=== PATIENT | female | born 1955 | race Caucasian/White ===

== ENCOUNTER → 2017-09-17 | Outpatient (CLI) | payer BC | LOC: FIMAGING 07:35 | PROVIDERS: ATTEND Orthopaedic Surgery | DX: Z01.818 Encounter for other preprocedural examination (principal); M17.11 Unilateral primary osteoarthritis, right knee ==

== ENCOUNTER 2017-09-24 06:01 | Observation (INO) | payer BC ==
[~2017-09-24 06:01] MED LIST: LIDOCAINE 1% 2 ML INJ ID PRN; LR 1,000 ML IV ONE; ROPIVACAINE 0.2% 80 MG, EPINEPHrine 0.2 MG, KETOROLAC TROMETHAMINE 30 MG in SYRINGE 0 ML IU ONE; TRANEXAMIC ACID 3,000 MG in NS (SYRINGE) 50 ML IRR ONE
[2017-09-24] MEDS ORDERED: ACETAMINOPHEN 325 MG TAB PO ONE (06:16)
[2017-09-24] MEDS ORDERED: FAMOTIDINE 20 MG TAB PO ONE (06:16)
[2017-09-24] MEDS ORDERED: DEXAMETHASONE 4 MG/ML VIAL IVP ONE (06:16)
[2017-09-24] MEDS ORDERED: ceFAZolin 2 GM/SWFI 2 GM/20 ML SYR IVP ONE (06:16)
[2017-09-24] MEDS ORDERED: TRANEXAMIC ACID 3,000 MG/50 ML BAG IRR ONE (06:35)
[2017-09-24] MEDS ORDERED: VANCOMYCIN 1 GM VIAL ONE (06:35)
[2017-09-24] MEDS ORDERED: MIDAZOLAM 2 MG/2 ML VIAL ONE (07:01)
--- NOTE | 2017-09-24 07:08 | PDHPUP ---
History & Physical Update H&P update statement: This history and physical update is based on an assessment of the patient which was completed after admission or registration (within 24 hours), but prior to the surgery/procedure. H&P update: H&P reviewed & patient examined, no change in patient's condition since H&P completed
[2017-09-24] MEDS ORDERED: PROPOFOL/EMULSION 500 MG/50 ML BOTTLE IV ONE (07:09)
[2017-09-24] MEDS ORDERED: DIPHENOXYLATE/ATROPINE LOMOTIL 1 TAB PO PRN (07:23)
[2017-09-24] MEDS ORDERED: ONDANSETRON 4 MG/2 ML VIAL IVP PRN ×2 (07:23→07:28)
[2017-09-24] MEDS ORDERED: TEMAZEPAM 15 MG CAP PO PRN (07:23)
[2017-09-24] MEDS ORDERED: diphenhydrAMINE 25 MG CAP PO PRN (07:23)
[2017-09-24] MEDS ORDERED: oxyCODONE IR 5 MG TAB PO PRN (07:23)
[2017-09-24] MEDS ORDERED: POLYETHYLENE GLYCOL 3350 17 GM PKT PO PRN (07:23)
[2017-09-24] MEDS ORDERED: PROMETHAZINE HCL 25 MG/ML INJ IVP PRN (07:23)
[2017-09-24] MEDS ORDERED: LACTULOSE 20 GM/30 ML UDCUP PO PRN (07:23)
[2017-09-24] MEDS ORDERED: BISACODYL 10 MG SUPP PR PRN (07:23)
[2017-09-24] MEDS ORDERED: PROMETHAZINE HCL 25 MG SUPPR PR PRN (07:23)
[2017-09-24] MEDS ORDERED: CYCLOBENZAPRINE 10 MG TAB PO PRN (07:23)
[2017-09-24] MEDS ORDERED: NON-FORMULARY NEW DRUG (Omeprazole [Prilosec 20 Mg] 20 MG) PO PRN (07:23)
[2017-09-24] MEDS ORDERED: ONDANSETRON DISINTEGRATING 4 MG TAB PO PRN (07:23)
[2017-09-24] MEDS ORDERED: METOCLOPRAMIDE 10 MG/2 ML VIAL IVP PRN (07:23)
[2017-09-24] MEDS ORDERED: MAGNESIUM HYDROXIDE 30 ML UDCUP PO PRN (07:23)
--- NOTE | 2017-09-24 07:26 | PDANEPAE ---
ANE Past Medical History - Cardiovascular History Hx Hypertension: Yes Hx Arrhythmias: No Hx Chest Pain: No Hx Coronary Artery / Peripheral Vascular Disease: No Hx CHF / Valvular Disease: No Hx Palpitations: No - Pulmonary History Hx COPD: No Hx Asthma/Reactive Airway Disease: No Hx Recent Upper Respiratory Infection: No Hx Oxygen in Use at Home: No Hx Sleep Apnea: No Sleep Apnea Screening Result - Last Documented: Positive - Neurologic History Hx Cerebrovascular Accident: No Hx Seizures: No Hx Dementia: No - Endocrine History Hx Diabetes: No - Renal History Hx Renal Disorders: No - Liver History Hx Hepatic Disorders: No - Neurological & Psychiatric Hx Hx Neurological and Psychiatric Disorders: No - Cancer History Hx Cancer: No - Congenital Disorder History Hx Congenital Disorders: No - GI History Hx Gastrointestinal Disorders: Yes Gastrointestinal History Comment: GERD - Other Health History Other Health History: NEG - Chronic Pain History Chronic Pain: Yes (R KNEE) - Surgical History Prior Surgeries: L TKA. LAP BAND. C SECTION ANE Review of Systems Review of Systems: - Exercise capacity METS (RN): 4 METS ANE Patient History - Allergies Allergies/Adverse Reactions: No Known Allergies Allergy (Unverified 08/15/17 13:26) - Home Medications Home Medications: Calcium Carbonate [Oyster Shell Calcium 500 mg (*)] 500 mg PO DAILY 08/15/17 [ Last Taken 2 Weeks Ago ~09/10/17] Cholecalciferol Vit D3 [Vitamin D3 2000 units tab (OTC)] 10,000 units PO BID [Last Taken 2 Weeks Ago ~09/10/17] Herbals/Supplements -Info Only 1 ea PO DAILY 08/15/17 [Last Taken 2 Weeks Ago ~ 09/10/17] Losartan/Hydrochlorothiazide [Losartan-Hctz 100-25 Mg Tab] 1 each PO DAILY 08/15 [Last Taken 1 Day Ago ~09/23/17] Naproxen Sodium [Aleve 220 MG (*)] 220 mg PO BID PRN 08/15/17 [Last Taken 1 Week Ago ~09/17/17] Omeprazole [Prilosec 20 mg] 20 mg PO DAILY PRN 08/15/17 [Last Taken 09/19/17] - NPO status NPO Since - Liquids (Date): 09/24/17 NPO Since - Liquids (Time): 06:45 NPO Since - Solids (Date): 09/23/17 NPO Since - Solids (Time): 18:00 - Smoking Hx Smoking Status: Never smoked - Family Anes Hx Family Hx Anesthesia Complications: NEG ANE Labs/Vital Signs - Vital Signs Blood Pressure: 124/74 Heart Rate: 77 Respiratory Rate: 18 O2 Sat (%): 95 Height: 170.18 cm Weight: 72.121 kg ANE Physical Exam - Airway Neck exam: FROM Mallampati Score: Class 1 Mouth exam: normal dental/mouth exam - Pulmonary Pulmonary: no respiratory distress, no rales or rhonchi, clear to auscultation - Cardiovascular Cardiovascular: no murmur, rub, or gallop - ASA Status ASA Status: II ANE Anesthesia Plan Anesthesia Plan: spinal
[2017-09-24] MEDS ORDERED: MEPERIDINE 25 MG/ML SYR IVP PRN (07:28)
[2017-09-24] MEDS ORDERED: NALOXONE HCL 0.4 MG/ML INJ IVP PRN (07:28)
[2017-09-24] MEDS ORDERED: fentaNYL 100 MCG/2 ML INJ IVP PRN (07:28)
[2017-09-24] MEDS ORDERED: DEXAMETHASONE 4 MG/ML VIAL IVP PRN (07:28)
[2017-09-24] MEDS ORDERED: LIDOCAINE 2% 5 ML SDV ONE (07:29)
[2017-09-24] MEDS ORDERED: LR 1,000 ML IV SCH (07:30)
[2017-09-24] MEDS ORDERED: ROPIVACAINE HCL 150 MG/30 ML INJ ONE (07:49)
--- NOTE | 2017-09-24 08:40 | POSTOPPROG ---
Post Op Note Date of Operation: 09/24/17 Surgeon: Hernán Verdugo Soldering Machine Operator: masood verdugo Anesthesiologist: Dr. Gutiérrez Anesthesia: Spinal, Other (Specify) (adductor canal block) Pre-op Diagnosis: right knee OA Post-op Diagnosis: same Indication: right knee pain due to OA that failed conservative measures Procedure: R TKA robot assisted Findings: severe knee OA Inf/Abcess present in the surg proc area at time of surgery?: No EBL: 50-100
--- NOTE | 2017-09-24 08:58 | POSTANESTH ---
Post Anesthetic Evaluation Cardiovascular Status: Normal, Stable Respiratory Status: Normal, Stable Level of Consciousness/Mental Status: Can Participate in Eval Pain Control: Adequate, Prn Tx Ordered Nausea/Vomiting Control: Adequate, Prn Tx Ordered Complications Possibly Related to Anesthesia: None Noted
[2017-09-24] MEDS: ASPIRIN 81 MG CHEWABLE TAB PO SCH ×2 (09:53→21:42)
[2017-09-24] MEDS: SENNOSIDES/DOCUSATE SODIUM TAB PO SCH ×2 (09:54→21:43)
[2017-09-24] MEDS ORDERED: PANTOPRAZOLE SODIUM 40 MG TAB PO PRN (10:07)
[2017-09-24] MEDS: ACETAMINOPHEN 325 MG TAB PO SCH ×3 (12:18→23:42)
[2017-09-24] MEDS ORDERED: ceFAZolin 2 GM/DEXTROSE 100 ML IV SCH (14:00)
[2017-09-24] MEDS: ceFAZolin 2 GM/SWFI 2 GM/20 ML SYR IVP SCH ×2 (14:23→23:43)
[2017-09-24] MEDS: FAMOTIDINE 20 MG TAB PO SCH (21:42)
[2017-09-24 23:38] VITALS: RESP 16
[2017-09-25] MEDS: ACETAMINOPHEN 325 MG TAB PO SCH ×2 (05:26→10:49)
--- NOTE | 2017-09-25 06:42 | GOP ---
[f rep st] OPERATIVE REPORT DATE OF OPERATION: 09/24/2017 SURGEON: Suly Walters MD EVIDENCE SPECIALIST: SKYLAR Nunez ANESTHESIA: Spinal. PREOPERATIVE DIAGNOSIS: Right knee osteoarthritis. POSTOPERATIVE DIAGNOSIS: Right knee osteoarthritis. PROCEDURE PERFORMED: Right total knee arthroplasty with computer navigation, robotic assist. FINDINGS: severe medial and PF DJD. ESTIMATED BLOOD LOSS: 30 cc. INDICATIONS: The patient is a 62-year-old female, with severe and progressive pain and deformity of the right knee unresponsive to conservative care. The risks and benefits of surgical intervention were explained in detail. DESCRIPTION OF PROCEDURE: The patient was brought to the operative room and placed on the table in the supine position. Spinal anesthesia was induced without difficulty. A pneumatic tourniquet was applied about the right proximal thigh, and the leg was prepped and draped in a sterile fashion. The leg sinha was applied. After exsanguination by elevation the tourniquet was inflated to 250 mmHg. Incision was made anterior medial from the tibial tuberosity to a point 2cm proximal to the superior pole of the patella. Medial parapatellar arthrotomy was carried out from the superior pole of the patella and posteriorly in line with the fibers of the Type II VMO. The medial collateral ligament was elevated and the infrapatellar fat pad was resected. The patella was everted and the articular surface was excised. A 35 mm patellar button was placed. Attention was turned first to the distal aspect of the femur. After exposure of the femur, 2 half pins were placed for fixation of the femoral array. In a similar fashion, 2 pins were placed anteromedial on the tibia for fixation of the tibial array. External land marking and registration of the hip center was performed without difficulty. Internal femoral and tibial registration was carried out without difficulty and the femoral and tibial checkpoints were placed and verified for accuracy. Attention was turned to the femur. The foot print for the size 4 femoral component was cut with the saw using the Flyfit robotic system and verified for accuracy against the CT based plan. In a similar fashion, the saw was used to cut the footprint for the size 4 tibial component using the Flyfit system and verified for accuracy against the CT based plan. The tibial articular surface was excised without difficulty, followed by the intercondylar box cut. The knee was extended and the remnants of the medial and lateral meniscus were excised. The posterior capsule was injected with ropivacaine, epinephrine and Toradol. A size 4 tibial tray was positioned. Trial reduction was then carried out. There was excellent range of motion, alignment, and stability using the 4 x 9 mm polyethylene. All trials were then removed. The joint was thoroughly irrigated and carefully dried. The Press-Fit components were implanted. The permanent 4 x 9 mm polyethylene was placed without difficulty. The tourniquet was deflated and all bleeders were coagulated. The wound was thoroughly irrigated and closed using interrupted sutures of 2-0 Vicryl for the joint capsule. The subcu was closed with 3-0 Vicryl and the skin with 4-0 Monocryl. Dermabond and Steri-Strips were applied followed by a compressive dressing. The patient was then moved from the operating room to the recovery room in good condition, having tolerated the procedure well. /[id number]/MODL MTDD
[2017-09-25 07:21] VITALS: BP 114/73; PULSE 60; TEMP 98.5
[2017-09-25] MEDS: FAMOTIDINE 20 MG TAB PO SCH (08:13)
[2017-09-25] MEDS: SENNOSIDES/DOCUSATE SODIUM TAB PO SCH (08:13)
[2017-09-25 08:45] VITALS: O2SAT 100
[2017-09-25] MEDS ORDERED: LOSARTAN/HCTZ 50/12.5 1 TAB PO SCH (09:00)
[2017-09-25] MEDS ORDERED: NON-FORMULARY NEW DRUG (Losartan/Hydrochlorothiazide [Losartan-Hctz 100-25 Mg Tab] 1 EACH) PO SCH (09:00)
[2017-09-25] MEDS ORDERED: PNEUMOCOCCAL 0.5ML VACCINE VIAL IM ONE (09:31)
[2017-09-25] MEDS: ASPIRIN 81 MG CHEWABLE TAB PO SCH (10:48)
--- NOTE | 2017-09-25 15:18 | SOAPPROG ---
[facility] Progress Note Assessment/Plan: Assessment: patient is doing well POD 1 s/p R TKA pain is well controlled DVT ppx: recommend aspirin 81 mg BID d/c planning: d/c to home today Plan: 09/25/17 10:17 09/25/17 15:18 Subjective: Sarah is doing well today, denies SOB, chest pain and N/V. Objective: Vital Signs Temp Pulse Resp BP Pulse Ox 36.9 C 60 16 114/73 100 09/25/17 07:20 09/25/17 07:20 09/25/17 07:20 09/25/17 07:20 09/25/17 08:10 Laboratory Results 09/25/17 04:48 09/24/17 09/25/17 09/26/17 05:59 05:59 05:59 Intake Total 3400 200 Output Total 900 Balance 2500 200 RLE: incision dressing is clean and dry, NVI, +pf/df ICD10 Worksheet Patient Problems: Problems Problem Status Onset Primary localized osteoarthritis of right knee Acute
== END 2017-09-25 11:33 | disposition home or self-care (01) ==
LOC: INTOOBSV 06:01 → F3N 06:01
PROVIDERS: ADMIT Orthopaedic Surgery; ATTEND Orthopaedic Surgery
DX: M17.11 Unilateral primary osteoarthritis, right knee (principal); K21.9 Gastro-esophageal reflux disease without esophagitis; I10 Essential (primary) hypertension; Z96.652 Presence of left artificial knee joint; Z23 Encounter for immunization
CPT/HCPCS: 20985; 27447; 73560; 90471; 97116; 97161; 97165; 97530; G0378; G0009; J0171; J0690; J1100; J1885; J2250; J2405; J2704; J2795; J3370

== ENCOUNTER → 2017-11-17 | Outpatient (CLI) | payer BC | LOC: BRMIMAGING 08:00 | DX: Z12.31 Encounter for screening mammogram for malignant neoplasm of breast (principal) ==